=== PATIENT | female | born 1975 | race Caucasian/White ===

== ENCOUNTER 2021-11-15 07:22 | Emergency (ER) | payer OTHER ==
[2021-11-15] MEDS ORDERED: Ketorolac 15 MG/ML SDV IVPUSH ONE (08:10)
[2021-11-15] MEDS ORDERED: Alum Hydrox/Mag Hydrox/Simeth 30 ML, Lidocaine 2% 15 ML PO ONE ×2 (08:10)
[2021-11-15] MEDS ORDERED: Dicyclomine 10 MG Cap PO ONE (08:12)
== END 2021-11-15 12:31 | disposition home or self-care (01) ==
LOC: JD.ED 07:22
DX: R07.2 Precordial pain (principal); F41.9 Anxiety disorder, unspecified
CPT/HCPCS: 36415; 71045; 80053; 84484; 85025; 85379; 93005; 96374; 99285; A9270; J1885; 93010; 99284

== ENCOUNTER 2022-05-19 08:47 | Emergency (ER) | payer OTHER ==
[2022-05-19] MEDS ORDERED: Sodium Chloride 0.9% 10 ML Syringe FLUSH PRN (09:17)
[2022-05-19] MEDS ORDERED: Ketorolac 30 MG/ML SDV IVPUSH ONE (09:19)
== END 2022-05-19 11:17 | disposition home or self-care (01) ==
LOC: JD.ED 08:47
DX: R07.81 Pleurodynia (principal); F17.210 Nicotine dependence, cigarettes, uncomplicated; Z79.899 Other long term (current) drug therapy
CPT/HCPCS: 36415; 71045; 80053; 84484; 85025; 93005; 96374; 99285; J1885; J3490; 93010; 99284

== ENCOUNTER 2024-09-25 08:54 | Emergency (ER) | payer SELFPAY ==
[2024-09-25] MEDS: Ketorolac 60 MG/2 ML SDV IM ONE (11:08)
== END 2024-09-25 11:30 | disposition home or self-care (01) ==
LOC: JD.ED 08:54
DX: S49.91XA Unspecified injury of right shoulder and upper arm, initial encounter (principal); F17.210 Nicotine dependence, cigarettes, uncomplicated; W00.1XXA Fall from stairs and steps due to ice and snow, initial encounter; Y93.89 Activity, other specified
CPT/HCPCS: 73030; 96372; 99283; J1885